=== PATIENT | male | born 1995 | race Asian ===

== ENCOUNTER 2018-04-25 12:26 | Emergency (ER) | payer OTHER ==
[~2018-04-25] VITALS: Ht 170.2 cm; Wt 68.0 kg
[2018-04-25] MEDS ORDERED: LANTUS100 MG/ML SC (12:53)
[2018-04-25] MEDS ORDERED: HYDR10TA47 PO (12:54)
[2018-04-25] MEDS ORDERED: LISI10TA11 PO (12:54)
[2018-04-25] MEDS ORDERED: SOMA350 MG PO (12:54)
[2018-04-25 14:47] LABS: PLATELET COUNT 367 K/uL (142-355)
[2018-04-25 14:48] LABS: POTASSIUM 4.1 mmol/L (3.6-5.2)
[2018-04-25 16:20] VITALS: BP 141/94; TEMP 98.5
== END 2018-04-25 16:20 | disposition home or self-care (01) ==
LOC: ED 12:26
PROVIDERS: Family Medicine
DX: R10.9 Unspecified abdominal pain (principal); E11.65 Type 2 diabetes mellitus with hyperglycemia
CPT/HCPCS: 36415; 80053; 81000; 82962; 85027; 96374; 99284; J1815; J1885